=== PATIENT | female | born 1965 | race Caucasian/White ===

== ENCOUNTER 2019-05-28 02:57 | Emergency (ER) | payer BC ==
[~2019-05-28] VITALS: Ht 167.6 cm; Wt 86.2 kg
[2019-05-28 02:59] VITALS: BP 137/82
--- NOTE | 2019-05-28 03:01 | NUR ---
PT AMBULATED TO ER BED 11
--- NOTE | 2019-05-28 03:05 | NUR ---
53/F PRESENTED TO ED WITH C/O URINARY HESITANCY SINCE MONDAY. PRESSURE LIKE FEELING IN PELVIS. 04/23 PAIN. NO BLOOD NOTED IN URINE. ABLE TO MAKE NEEDS KNOWN. NO SIGNS OF DISTRESS NOTED. VSS. HX-HTN ALLERGY- ASA, MORPHINE
[2019-05-28] MEDS ORDERED: PHENAZOPYRIDINE 100 MG TAB PO ONE (03:45)
--- NOTE | 2019-05-28 04:00 | NUR ---
Patient discharged with v/s stable. Written and verbal after care instructions given and explained. Patient alert, oriented and verbalized understanding of instructions. Ambulatory with steady gait. All questions addressed prior to discharge. ID band removed. Patient advised to follow up with PMD. Rx of naprosyn, pyridum, and keflex given. Patient educated on indication of medication including possible reaction and side effects. Opportunity to ask questions provided and answered.
== END 2019-05-28 04:00 | disposition home or self-care (01) ==
LOC: MED 02:57
DX: N39.0 Urinary tract infection, site not specified (principal); I10 Essential (primary) hypertension; Z88.8 Allergy status to other drugs, medicaments and biological substances; Z88.5 Allergy status to narcotic agent; Z90.710 Acquired absence of both cervix and uterus
CPT/HCPCS: 81002; 81025; 99283

== ENCOUNTER 2019-09-21 18:51 | Emergency (ER) | payer BC ==
[~2019-09-21] VITALS: Ht 167.6 cm; Wt 88.5 kg
[2019-09-21 19:10] VITALS: BP 108/69
--- NOTE | 2019-09-21 19:13 | NUR ---
TO CHAIR B AMBULATORY
--- NOTE | 2019-09-21 19:50 | NUR ---
54 Y/O FEMALE C/O RIGHT KNEE PAIN/LEFT SHOULDER PAIN S/P FALLING DOWN APPROX 10 STAIRS. MULTIPLE SMALL ABRASIONS NOTED IN UPPER/LOWER BILAT EXTREMITIES. BLEEDING CONTROLLED AT THIS TIME. PT DENIES LOC, BUT STATES SHE "MAY HAVE HIT HER HEAD". RESP EVEN AND UNLABORED. DENIES AANY SOB/CHEST PAIN PMH: HTM ALLERGIES: ASPIRIN, MORPHINE
--- NOTE | 2019-09-21 19:51 | NUR ---
Keegan rucker in [facility] - 09/21/19 at 1952 by ADARSH PT TAKEN TO BED 1
--- NOTE | 2019-09-21 19:51 | NUR ---
PT TAKEN TO BED 01 VIA WHEEL CHAIR
[2019-09-21] MEDS ORDERED: HYDROcodone/APAP 5/325 MG 1 TAB TAB PO ONE (20:00)
[2019-09-21] MEDS ORDERED: KETOROLAC 30 MG/ML VIAL IM ONE (20:00)
--- NOTE | 2019-09-21 21:20 | NUR ---
REPORT RECIEVED FROM [facility] FOR [facility]ED [facility]. PATIENT SITTING UP IN BED. SON AT BEDSIDE. PATIENT STATES HER PAIN IS 8/10 AFTER BEING MANIPULATED FOR XRAY.
[2019-09-21] MEDS ORDERED: BACITRACIN OINT 500 UNITS/GM PKT TP ONE (21:25)
[2019-09-21 21:42] VITALS: BP 105/62
--- NOTE | 2019-09-21 21:43 | NUR ---
Patient discharged with v/s stable. Written and verbal after care instructions given and explained. Patient alert, oriented and verbalized understanding of instructions. Ambulatory with steady gait. All questions addressed prior to discharge. ID band removed. Patient advised to follow up with PMD. Rx of NORCO, NAPROSYN given. Patient educated on indication of medication including possible reaction and side effects. Opportunity to ask questions provided and answered.
== END 2019-09-21 21:49 | disposition home or self-care (01) ==
LOC: MED 18:51
DX: S60.221A Contusion of right hand, initial encounter (principal); S80.01XA Contusion of right knee, initial encounter; S40.012A Contusion of left shoulder, initial encounter; S60.212A Contusion of left wrist, initial encounter; S60.052A Contusion of left little finger without damage to nail, initial encounter; S70.02XA Contusion of left hip, initial encounter; S80.811A Abrasion, right lower leg, initial encounter; I10 Essential (primary) hypertension; Z88.6 Allergy status to analgesic agent; Z88.5 Allergy status to narcotic agent; Z90.710 Acquired absence of both cervix and uterus; W10.9XXA Fall (on) (from) unspecified stairs and steps, initial encounter; Y93.89 Activity, other specified; Y92.89 Other specified places as the place of occurrence of the external cause; Y99.8 Other external cause status
CPT/HCPCS: 73060; 73090; 73120; 73140; 73502; 73560; 96372; 99283; J1885; Q0092